=== PATIENT | female | born 2000 | race Caucasian/White ===

== ENCOUNTER → 2019-04-05 | Outpatient (CLI) | payer OTHER, SELFPAY ==
[2019-04-05 19:09] LABS: Chlamydia Trachomatis by PCR Negative (Negative); Neisserai gonorrhoeae by PCR Negative (Negative); Probe Check PASS; Sample Adequacy Control PASS; Specimen Processing Control PASS
== END | disposition home or self-care (01) ==
LOC: LABSPEC 16:15
PROVIDERS: Visit Provider Obstetrics & Gynecology
DX: Z11.3 Encounter for screening for infections with a predominantly sexual mode of transmission (principal)
CPT/HCPCS: 87491; 87591

== ENCOUNTER → 2020-05-28 | Outpatient (CLI) | payer OTHER, SELFPAY | END | disposition home or self-care (01) | LOC: LABSPEC 14:04 | PROVIDERS: Visit Provider Obstetrics & Gynecology | DX: Z12.4 Encounter for screening for malignant neoplasm of cervix (principal) | CPT/HCPCS: 88175; G0145 ==

== ENCOUNTER → 2021-06-03 | Outpatient (CLI) | payer OTHER, SELFPAY ==
[2021-06-02 10:58] VITALS: BMI 24.6
== END | disposition home or self-care (01) ==
LOC: LABSPEC 16:16
PROVIDERS: PCP Family Medicine; Visit Provider Obstetrics & Gynecology
DX: Z12.4 Encounter for screening for malignant neoplasm of cervix (principal)
CPT/HCPCS: 88175; G0145

== ENCOUNTER → 2021-10-19 08:01 | Outpatient (CLI) | payer OTHER, SELFPAY ==
[2021-10-19 08:45] LABS: Anion Gap 7 (5-15); BUN 12 mg/dL (7-18); Calcium,Total 8.9 mg/dL (8.5-10.1); Chloride 107 mmol/L (98-107); Cholesterol 187 mg/dL (200); Creatinine, Serum 0.67 mg/dL (0.55-1.02); EST Glomerular Filtration Rate 117 mL/min (>60); Est Glom Filt Rate - Afr Amer 141 mL/min (>60); Glucose 103 mg/dL (74-106); High Density Lipoprotein 63 mg/dL; Potassium 4.3 mmol/L (3.5-5.1); Sodium Level 137 mmol/L (136-145); Triglycerides 91 mg/dL; Very Low Density Lipoprotein 18 mg/dL (5-40)
== END ==
PROVIDERS: PCP Family Medicine; Referring Provider Family Medicine; Visit Provider Family Medicine
DX: Z00.00 Encounter for general adult medical examination without abnormal findings (principal)
CPT/HCPCS: 36415; 80048; 80061

== ENCOUNTER → 2022-08-06 | Outpatient (CLI) | payer OTHER, SELFPAY ==
[2022-08-06 13:53] LABS: Absolute Lymphocyte Count 2.45 X10^3/uL (0.83-4.51); Absolute Neutrophil Count 2.7 X10^3/uL (2.0-7.7); Basophil# 0.03 X10^3/uL; Basophil% 0.5 % (0-1); Eosinophil# 0.13 X10^3/uL; Eosinophils% 2.3 % (0-5); Hematocrit 41.6 % (37-47); Hemoglobin 14.3 g/dL (12.0-15.0); Lymphocyte # 2.45 X10^3/ul (0.83-4.51); Lymphocyte % 43.8 % (19-41); Mean Corp Hgb Conc 34.4 g/dL (32-36); Mean Corpuscular Hgb 28.8 pg (27.0-32.0); Mean Corpuscular Volume 83.9 fL (81-99); Mean Platelet Vol. 9.6 fl (6.2-12.0); Monocyte# 0.32 X10^3/uL; Monocyte% 5.7 % (0-10); NRBC Flagged by Analyzer 0 % (0-5); Neutrophil # 2.65 X10^3/uL (2.7-7.7); Neutrophil % 47.5 % (47-70); Platelet Count 346 K/mm3 (150-450); RBC Distribution Width CV 12.5 % (11.6-14.6); RBC Distribution Width SD 37.8 fl (35.1-43.9); Red Blood Count 4.96 M/mm3 (4.2-5.4); White Blood Count 5.6 K/mm3 (4.4-11.0)
[2022-08-06 14:05] LABS: Internal QC Validated? YES +Cl - CLEAR BKGD; Pregnancy, Serum, hCG Quali. NEGATIVE Negative
[2022-08-06 14:17] LABS: Hemoglobin A1c 5.2 % (3.8-5.6)
[2022-08-06 14:18] LABS: Follicle Stimulating Hormone 5.2 mIU/mL; Luteinizing Hormone 14.6 mIU/mL; Prolactin 7.9 ng/mL; T4 Free Direct 0.97 ng/dL (0.76-1.46); Thyroid Stim Hormone (TSH) 1.98 uIU/mL (0.358-3.74)
[2022-08-19 12:08] LABS: Testosterone, Free 1.45 ng/dL (0.10-0.85); Testosterone, Total 67 ng/dL (13-71)
[2022-08-19 17:50] LABS: Testosterone, % Free 2.17 % (0.50-2.80)
== END | disposition home or self-care (01) ==
LOC: WOBLAB 11:33
PROVIDERS: PCP Family Medicine; Visit Provider Obstetrics & Gynecology
DX: N93.9 Abnormal uterine and vaginal bleeding, unspecified (principal)
CPT/HCPCS: 36415; 82670; 83001; 83002; 83036; 84146; 84402; 84403; 84439; 84443; 84703; 85025

== ENCOUNTER → 2022-10-19 | Outpatient (CLI) | payer OTHER, SELFPAY ==
[2022-10-19 08:27] LABS: Anion Gap 6 (5-15); BUN 16 mg/dL (7-18); BUN/Creat Ratio 23.3 RATIO (10-20); Calcium,Total 8.6 mg/dL (8.5-10.1); Chloride 112 mmol/L (98-107); Cholesterol 161 mg/dL (200); Creatinine, Serum 0.69 mg/dL (0.55-1.02); EST Glomerular Filtration Rate 112 mL/min (>60); Est Glom Filt Rate - Afr Amer 135 mL/min (>60); Glucose 96 mg/dL (74-106); High Density Lipoprotein 47 mg/dL; Potassium 3.8 mmol/L (3.5-5.1); Sodium Level 142 mmol/L (136-145); Triglycerides 55 mg/dL; Very Low Density Lipoprotein 11 mg/dL (5-40)
== END | disposition home or self-care (01) ==
PROVIDERS: PCP Family Medicine; Referring Provider Family Medicine; Visit Provider Family Medicine
DX: Z00.00 Encounter for general adult medical examination without abnormal findings (principal)
CPT/HCPCS: 36415; 80048; 80061

== ENCOUNTER → 2023-11-08 | Outpatient (CLI) | payer OTHER, SELFPAY ==
--- OUTSIDE RECORDS SUMMARY | 2023-11-08 07:49 | XMS RPT_ITS | CCD ---
Author Name Unknown Address [facility] [employer] [id number] [place] [address] Organization [facility] Care Team Providers Care Preschool Adviser Name Role Phone DO Tigre Wade Attending Provider [phone] Daniel Roy (Historical) Primary Care Provide AVRIL You Attending Unavailable Allergies Allergy Classification Reported Allergen(s) Allergy Type Date of Onset Reaction(s) Facility (3 sources) Amoxicillin / Clavulanate; Translations: [AMOXICILLIN-POT CLAVULANATE] Drug Allergy 5 Other: See Comments [facility] Work Phone: (1 source) Cephalexin; Translations: [CEPHALEXIN] Drug Allergy 5 [facility] Repository Medications Current Medications Medication Drug Class(es) Dates Sig (Normalized) Sig (Original) COMPOUNDED PRESCRIPTION (1 source) Start: 09-20-2006 End: 08-16-2023 COMPOUNDED PRESCRIPTION daily vitamin 0 09/20/2006 08/16/2023 Discontinued Completed/Discontinued Medications Medication Drug Class(es) Dates Sig (Normalized) Sig (Original) 1 ml medroxyPROGESTERone acetate 150 mg/ml prefilled syringe (6 sources) Progestin Start: 3 End: 4 medroxyPROGESTERone (DEPO-PROVERA) 150 mg/mL Indications: Encounter for Depo-Provera contraception Inject 1 mL intramuscularly every 12 weeks. 1 mL 3 08/16/2023 08/17/2023 Discontinued Problems Problem Classification Problem Date Documented Da te Episodic/Chronic Contraceptive and procreative management (2 sources) Patient encounter status; Translations: [Encounter for surveillance of injectable contraceptive] 08-16-2023 Episodic Headache; including migraine (1 source) Migraine, unspecified, not intractable, without status migrainosus; Translations: [Migraine, unspecified, not intractable, without status migrainosus] Onset: 06-11-2023 Chronic Nausea and vomiting (1 source) Nausea; Translations: [Nausea] Onset: 06-11-2023 Episodic Other endocrine disorders (2 sources) Polycystic ovary syndrome; Translations: [Polycystic ovarian syndrome] 08-16-2023 Chronic Other nutritional; endocrine; and metabolic disorders (1 source) Obesity; Translations: [Obesity, unspecified] 08-16-2023 Chronic Other upper respiratory disease (2 sources) Allergic rhinitis; Translations: [Allergic rhinitis, unspecified] Onset: 09-16-2005 09-16-2005 Chronic Residual codes; unclassified (1 source) Pain, unspecified; Translations: [Pain, unspecified] Onset: 06-11-2023 Episodic Results Test Name Value Interpretation Reference Range Facil it Vital Signs Date Time Vital Sign Value Performing Clinician Facility 08-16-2023 07:28-0400 Body height 159.4 cm Avril Maria APRN.JEWELRY TECHNICIAN Work Phone: [facility] 08-16-2023 07:28-0400 Body weight 88 kg Avril Maria APRN.[facility] Work Phone: [facility] 08-16-2023 07:28-0400 Diastolic blood pressure 84 mm[Hg] Avril Maria APRN.JEWELRY TECHNICIAN Work Phone: [facility] 08-16-2023 07:28-0400 Systolic blood pressure 112 mm[Hg] Avril Maria APRN.JEWELRY TECHNICIAN Work Phone: [facility] 06-11-2023 09:53-0400 Body height 157.48 cm DO Tigre Wade Work Phone: [facility] Work Phone: 06-11-2023 09:53-0400 Body mass index (BMI) [Ratio] 35 kg/m2 DO Tigre Wade Work Phone: [facility] Work Phone: 06-11-2023 09:53-0400 Body temperature 98.3 [degF] DO Tigre Wade Work Phone: [facility] Work Phone: 06-11-2023 09:53-0400 Body weight 86.9 kg DO Tigre Wade Work Phone: [facility] Work Phone: 06-11-2023 09:53-0400 Diastolic blood pressure 84 mm[Hg] DO Tigre Wade Work Phone: [facility] Work Phone: 06-11-2023 09:53-0400 Heart rate 93 /min DO Tigre Wade Work Phone: [facility] Work Phone: 06-11-2023 09:53-0400 Respiratory rate 16 /min DO Tigre Wade Work Phone: [facility] Work Phone: 06-11-2023 09:53-0400 SaO2% (BldA) [Mass fraction] 100 % DO Tigre Wade Work Phone: [facility] Work Phone: 06-11-2023 09:53-0400 Systolic blood pressure 129 mm[Hg] DO Tigre Wade Work Phone: [facility] Work Phone: Encounters Encounter Date Encounter Type Care Provider Facility Start: 08-16-2023 Telephone encounter Avril byrd APRN.JEWELRY TECHNICIAN Work Phone: OB/Gynecology Plan of Treatment Date Care Activity Detail Author Start: 06-03-2024 Pap Testing Pap Testing [facility] Start: 07-01-2023 Covid-19 Vaccine ( season) Covid-19 Vaccine () [facility] Start: 07-01-2023 Influenza vaccination Influenza Vacc ine (#1) [facility] Start: 10-31-2022 Depression Assessment Depression Ass essment [facility] Start: 03-21-2017 HPV Vaccine (2 - 3-d ose series) HPV Vaccine (2 - 3-dose series) [facility] Start: 2016 Hepatitis C Screening Hepatitis C Jose Daniel almarazvenkat [facility] Start: 2016 HIV Screening HIV Screening [facility] Start: 2014 Meningococcal B Vacc ine: Consider Based On Risk (1 of 2 - Patient Seeks Protection) Meningococcal B Vaccine: Consider Based On Risk (1 of 2 - Patient Seeks Protection) [facility] Start: 2012 Peds To Adult Transi tion Annual Assessment Peds To Adult Transition Annual Assessment [facility] Start: 2010 Peds To Adult Transi tion Initial Discussion Peds To Adult Transition Initial Discussion [facility] Start: 2009 Urine microalbumin profile DTa P,Tdap,Td Vacc[facility] Immunization Date Immunization Notes Care Provider Kelly sierra 08-02-2022 influenza virus vacc ine, unspecified formulation Avril Maria APRN.[facility] Work Phone: [facility] 02-21-2017 Human Papillomavirus 9-valent vaccine Avril Maria APRN.JEWELRY TECHNICIAN Work Phone: [facility] Work Phone: 06-24-2004 diphtheria, tetanus toxoids and acellular pertussis vaccine Avril Maria APRN.JEWELRY TECHNICIAN Work Phone: [facility] Work Phone: 06-24-2004 measles, mumps and rubella virus vaccine Avril Maria APRN.JEWELRY TECHNICIAN Work Phone: [facility] 06-24-2004 poliovirus vaccine, inactivated Avril Maria APRN.JEWELRY TECHNICIAN Work Phone: [facility] 05-23-2000 diphtheria, tetanus toxoids and acellular pertussis vaccine Avril Maria APRN.JEWELRY TECHNICIAN Work Phone: [facility] Work Phone: 05-23-2000 haemophilus influenz ae type b vaccine, HbOC conjugate Avril Maria APRN.JEWELRY TECHNICIAN Work Phone: [facility] 05-23-2000 poliovirus vaccine, inactivated Avril Maria APRN.JEWELRY TECHNICIAN Work Phone: [facility] 10-12-1999 measles, mumps and rubella virus vaccine Avril Maria EMPLOYEE WELFARE MANAGER.JEWELRY TECHNICIAN Work Phone: [facility] 10-12-1999 varicella virus vaccine Avril Maria EMPLOYEE WELFARE MANAGER.JEWELRY TECHNICIAN Work Phone: [facility] 06-03-1999 diphtheria, tetanus toxoids and acellular pertussis vaccine Avril Maria EMPLOYEE WELFARE MANAGER.JEWELRY TECHNICIAN Work Phone: [facility] Work Phone: 06-03-1999 haemophilus influenz ae type b vaccine, HbOC conjugate Avril Maria EMPLOYEE WELFARE MANAGER.JEWELRY TECHNICIAN Work Phone: [facility] 06-03-1999 hepatitis B vaccine, pediatric or pediatric/adolescent dosage Avril Maria EMPLOYEE WELFARE MANAGER.JEWELRY TECHNICIAN Work Phone: [facility] 03-05-1999 diphtheria, tetanus toxoids and acellular pertussis vaccine Avril Maria EMPLOYEE WELFARE MANAGER.JEWELRY TECHNICIAN Work Phone: [facility] Work Phone: 03-05-1999 haemophilus influenz ae type b vaccine, HbOC conjugate Avril Maria EMPLOYEE WELFARE MANAGER.JEWELRY TECHNICIAN Work Phone: [facility] 03-05-1999 poliovirus vaccine, inactivated Avril Maria EMPLOYEE WELFARE MANAGER.JEWELRY TECHNICIAN Work Phone: [facility] 01-09-1999 diphtheria, tetanus toxoids and acellular pertussis vaccine Avril Maria EMPLOYEE WELFARE MANAGER.JEWELRY TECHNICIAN Work Phone: [facility] Work Phone: 01-09-1999 haemophilus influenz ae type b vaccine, HbOC conjugate Avril Maria EMPLOYEE WELFARE MANAGER.JEWELRY TECHNICIAN Work Phone: [facility] 01-09-1999 poliovirus vaccine, inactivated Avril Maria EMPLOYEE WELFARE MANAGER.JEWELRY TECHNICIAN Work Phone: [facility] 1998 hepatitis B vaccine, pediatric or pediatric/adolescent dosage Avril Maria EMPLOYEE WELFARE MANAGER.JEWELRY TECHNICIAN Work Phone: [facility] 1998 hepatitis B vaccine, pediatric or pediatric/adolescent dosage Avril Maria EMPLOYEE WELFARE MANAGER.JEWELRY TECHNICIAN Work Phone: [facility] Payers Date Payer Category Payer Self-pay 2019 Private Health Insurance [id number] 2019 Private Health Insurance AETRINA Nogueira ETNA POS [id number] 2019-Present [phone] [address] [place] [address] POS [id number] Unknown [id number] Social History Date Type Detail Facility Tobacco smoking status NHIS Unknown if ever smoked [facility] Work Phone: Start: 1998 Sex Assigned At Female C [facility] Start: 02-21-2017 Tobacco smoking status PAIS Never smoked tobacco [facility] Start: 02-21-2017 Tobacco use and exposure Smokeless tobacco non-user [facility] Start: 08-16-2023 Alcohol intake Current non-dr vending technician of alcohol (finding) [facility] Start: 08-16-2023 History of Social function [facility] Start: 08-16-2023 Tobacco use panel [facility] Start: 08-16-2023 Gender identity Identifies as female gender (finding) [facility] National Score (1-100), lower number is lower risk 72 [facility] Note 08-17-2023 Addendum Note - Amanda Escobar RN - 08/17/2023 3:31 PM EDTTelephone Encounter - Amanda Escobar RN - 08/17/2023 3:28 PM EDTAddendum Note - Avril Maria APRN.CNP - 08/17/2023 3:21 PM EDT Note Date & Type Note Facility 08-17-2023 Miscellaneous Notes Addended by: AMANDA ESCOBAR RN on: 08/17/2023 03:31 PM Modules accepted: Orders Patient notified. Information sent via [employer]. Amanda Escobar RN Addended by: AVRIL MARIA on: 08/17/2023 03:21 PM Modules accepted: Orders Please notify pt - Apri sent to her pharmacy which she can start the first pack on TuesdaySEPTEMBER 18 or the . It takes about 3 months for her body to adjust to a new oral contraceptive. Please send her OCP information although she has taken OCP in the past. Avril Maria APRN.CHEMA Patient called in regarding previous OCP she has been on. Larissia, Radha and Cryselle are the ones she took in the past. Amanda Escobar RN documented in this encounter [facility] Instructions 08-17-2023 Patient Instructions Note Date & Type Note Facility 08-17-2023 Instructions Amanda Escobar RN - 08/17/2023 3:27 PM EDT Oral Contraceptives: The Pill Beginning the Pill Pills come in either a 21 day pack or a 28 day pack. With the 21 day pack you will take one pill for 21 days then no pill for 7 days, during which time you will have what is known as withdrawal bleeding. The 28 day pack allows you to take a pill every day of the cycle with no interruptions. The first 21 pills are the pills with the active ingredients and the last 7 are the nonmedical pills (placebo) or they may contain iron. There will be bleeding during the week you are taking the nonmedical pills. The advantage to the 28 day pack is that you don t have to keep track of when you stopped the pill. There are a group of 28 day pills that contain 24 active pills and only 4 placebo pills. These are formulated to give you a machine fastener period. Unless otherwise instructed, you should start your pills the Tuesday following your first day of bleeding with your next period (if your period starts on a Tuesday, you should start pills the same day) Read your information packet that comes with the pills. Pill Benefits The pill is the most popular method of reversible control being used today. Millions of women rely on oral contraceptives as their control method. It is important to have an examination by your physician to determine if the pill is safe for you. There are several advantages associated with the pill: it is 97-98% effective when used correctly; may improve acne; periods are more regular and less painful; there is less iron deficiency anemia in pill users. group home use is associated with a decreased incidence of ovarian and uterine cancer. There is also no evidence that the pill increases the incidence of any cancer. How Oral Contraceptives Work Oral contraceptives come in two varieties. One is the combination pill which contains both estrogen and progesterone. Combination pills are considered 98-99% effective in preventing . This pill comes in either monophasic, which delivers the same amount of estrogen and progesterone throughout the cycle; and triphasic, which try tries to mimic the normal hormone cycle by changing the levels of the hormones in the pills during the month. There is no real advantage to taking the one over the other. The other type of pill only contains progesterone. It is best used for women who can t take estrogen. This type of pill is slightly less effective than the combination pill in preventing . It is VERY important to take the progesterone only pill at the same time every day. Oral contraceptives prevent ovulation (release of an egg from the ovary) by suppressing the pituitary gland s action. The pill does NOT prevent sexually transmitted disease. Obtaining a Prescription It is important to see your doctor before starting oral contraceptives so that you can have a full medical history taken and a physical examination given. Certain medical conditions may make the pill inappropriate for you, therefore it is very important to be honest and as complete as possible with the information you share with your doctor. The types of predisposing factors which would make the pill a poor choice of control would include: History of blood clots Stroke Serious liver disease or impaired liver function Unexplained vaginal bleeding or Cancer of the reproductive system Active gall bladder disease Hypertension Possible Side Effects It can take up to three months for your body to become adjusted to the pill. The more common side effects experienced at this time are: breakthrough spotting or bleeding, which is bleeding at any other time other than when you should be having a period; nausea or vomiting; breast tenderness; and mild fluid retention. There is no terminal make up operator weight gain with the use of the pill. Breakthrough bleeding is the most common complaint of new pill users. There is no way to predict who will have it and there is no way of preventing it. Breakthrough bleeding usually subsides on its own with no further treatment after the first three months of taking the pill. If these symptoms continue to occur after the first three months you should check with your physician to see if there is any physical cause and possibly change to another control pill. Problems: Missed 1 pill: Take 2 pills the next day. Missed 2 pills: Take 2 pills the next day and 2 pills the following day. Also use another form of control (condoms) along with the pill for the rest of the month. Missed 3 or more pills: You have two choices. You can take two pills each day until you are on schedule, plus use an additional form of control along with the pill for the rest of the month. Or you can stop the pill and start a completely new pack of pills the next Tuesday. You must use another form of control with the pill for at least the first two weeks of the new pack. You re ill and you have been vomiting or have diarrhea: You must use another form of control with the pill since the pill may not be fully absorbed during your illness. Continue to use the added control until the end of the cycle. Desire to become : Stop using the pill for one month before trying to become . Taking other medications: The control pill is less effective when you take the antibiotic Rifampin, epilepsy (seizure) drugs such as phenytoin, carbamazepine, phenobarbital, topiramate and some medications for HIV. Let your doctor know if you start taking any of these medications while on the pill. Symptoms to Notify Your Doctor with Immediately: Pain in your chest or legs Continuous blurred vision Severe headaches Slurred speech Tingling or weakness on one side of your body Shortness of breath Swelling of one leg Refills of Control Pills You need to see a doctor every year for a refill of your prescription. This is necessary in order that your health can be monitored closely while you are taking control pills. If your prescription should before your next scheduled appointment you can usually get a one month extension from your doctors office if you call during regular business hours about one week before you need to start the new package of pills. This allows the physician to refer to your chart for necessary health information. documented in this encounter [facility] Progress note 08-16-2023 Note Date & Type Note Facility 08-16-2023 Note HNO ID: [id number] Author: Avril Maria APRN.JEWELRY TECHNICIAN Service: ? Author Type: Nurse Practitioner Type: Progress Notes Filed: 08/17/2023 3:11 PM Note Text: Refinery Operator Helper offered: Patient declines. Kimberly Buck is a 22 year old female who presents for problem visit Depo Provera prescription and to establish care. Previous gynecologic care at [place] which closed. HPI: Using Depo Provera for contraception. Last dose 07/08/2023. No menses with Depo Provera but does have spotting with intercourse. Has used it for past year since moodiness and migraines were worse with ANSELMO, IUD was unable to be inserted. Still having migraines with Depo but worse with ANSELMO. Pap 06/03/2021 normal. Last annual 04/27/2023. Diagnosed with PCOS 2021 - irregular menses, thinning hair, elevated testosterone. US normal. OB History T0 L0 SAB0 IAB0 Ectopic0 Multiple0 Live Births0 Feeder Catcher History LMP: 04/04/2017, Having periods Age at Menarche: Age at First : Age at Menopause: Feeder Catcher History Comments: Sexual Activity: Yes; Male Contraception: Condom PAST MEDICAL HISTORY Diagnosis Date Unspecified otitis media Recurrent otitis PAST SURGICAL HISTORY Procedure Laterality Date INCISION EARDRUM,ASPIR,GEN ANESTH Myringotomy/tubes, x 2 No family history on file. Social History Tobacco Use Smoking status: Never Smokeless tobacco: Never Tobacco comments: father smokes outside Substance Use Topics Alcohol use: No Drug use: No Current Outpatient Medications Medication Sig Etonogestrel-Ethinyl Estradiol (NUVARING) 0.12-0.015 mg/24 hr vaginal ring Use 1 Each vaginally as directed. INSERT ONE(1) RING VAGINALLY AND LEAVE IN PLACE FOR THREE WEEKS, THEN REMOVE FOR 1 WEEK. miSOPROStol (CYTOTEC) 200 mcg tablet Take 1 tablet by mouth every 6 hours as needed. COMPOUNDED PRESCRIPTION daily vitamin No current facility-administered medications for this visit. Allergies As of Date: 08/16/2023 Allergen Noted Reaction AUGMENTIN [AMOXICILLIN-POT CLAVUL*09/08/2005 Unknown KEFLEX [CEPHALEXIN] 09/08/2005 Unknown Fully Assessed 04/15/2017 REVIEW OF SYSTEMS Denies family history of clotting disorders. Denies personal history of DVT, CVD, hypertension or migraine with aura. Non smoker. Allergies and current medication updated:Yes EXAM: BP 112/84 Ht 5' 2.75 (1.59m) Wt 194 lb (88.0kg) LMP 12/08/2022 BMI 34.63 kg/(m2). GENERAL: pleasant, female in no apparent distress CHEST: Normal inspiratory effort NEURO: alert and oriented x3,exam grossly non-focal ASSESSMENT/PLAN: 1. Encounter to establish care - ICD9: V65.8, ICD10: Z76.89 (primary diagnosis) - Last annual 03/2023. Normal Pap 05/2021. 2. Encounter for Depo-Provera contraception - ICD9: V25.49, ICD10: Z30.42 - Has gained 15 lbs since starting one year ago. Discussed weight gain and length of time of return of menstrual cycle after discontinuation. Has tried ANSELMO in the past with side effects. Unsure of the kinds tried and prefers to use ANSELMO - will check what ANSELMO's she has tried. - MEDROXYPROGESTERONE 150 MG/ML INTRAMUSCULAR SYRINGE 3. PCOS (polycystic ovarian syndrome) - ICD9: 256.4, ICD10: E28.2 - discussed with pt- review of PCOS with signs and symptoms. Increased risk of DMT2, CAD, infertility. Follow-up as needed and at annual. 08/17/2023 Patient sent in [email or web address] message that she has previously taken OCP's Radha Barbour (Sprintec) and Grover (Low Ogestrel) Avril Maria APRN.CHEMA Medical Decision Making: Problems: Moderate: 2+ stable chronic illnesses Risk: Moderate: Drug management and Moderate risk from testing/treatment Medical Decision Making Level: 4 - Moderate [facility] History of Present illness Narrative 08-16-2023 Avril Maria APRN.JEWELRY TECHNICIAN - 08/16/2023 7:18 AM EDT Note Date & Type Note Facility 08-16-2023 History of Presen t illness Narrative Refinery Operator Helper offered: Patient declines. Kimberly Buck is a 22 year old female who presents for problem visit Depo Provera prescription and to establish care. Previous gynecologic care at [place] which closed. HPI: Using Depo Provera for contraception. Last dose 07/08/2023. No menses with Depo Provera but does have spotting with intercourse. Has used it for past year since moodiness and migraines were worse with ANSELMO, IUD was unable to be inserted. Still having migraines with Depo but worse with ANSELMO. Pap 06/03/2021 normal. Last annual 04/27/2023. Diagnosed with PCOS 2021 - irregular menses, thinning hair, elevated testosterone. US normal. OB History T0 L0 SAB0 IAB0 Ectopic0 Multiple0 Live Births0 Feeder Catcher History LMP: 04/04/2017, Having periods Age at Menarche: Age at First : Age at Menopause: Feeder Catcher History Comments: Sexual Activity: Yes; Male Contraception: Condom PAST MEDICAL HISTORY Diagnosis Date Unspecified otitis media Recurrent otitis PAST SURGICAL HISTORY Procedure Laterality Date INCISION EARDRUM,ASPIR,GEN ANESTH Myringotomy/tubes, x 2 No family history on file. Social History Tobacco Use Smoking status: Never Smokeless tobacco: Never Tobacco comments: father smokes outside Substance Use Topics Alcohol use: No Drug use: No Current Outpatient Medications Medication Sig Etonogestrel-Ethinyl Estradiol (NUVARING) 0.12-0.015 mg/24 hr vaginal ring Use 1 Each vaginally as directed. INSERT ONE(1) RING VAGINALLY AND LEAVE IN PLACE FOR THREE WEEKS, THEN REMOVE FOR 1 WEEK. miSOPROStol (CYTOTEC) 200 mcg tablet Take 1 tablet by mouth every 6 hours as needed. COMPOUNDED PRESCRIPTION daily vitamin No current facility-administered medications for this visit. Allergies As of Date: 08/16/2023 Allergen Noted Reaction AUGMENTIN [AMOXICILLIN-POT CLAVUL*09/08/2005 Unknown KEFLEX [CEPHALEXIN] 09/08/2005 Unknown Fully Assessed 04/15/2017 REVIEW OF SYSTEMS Denies family history of clotting disorders. Denies personal history of DVT, CVD, hypertension or migraine with aura. Non smoker. Allergies and current medication updated:Yes EXAM: BP 112/84 Ht 5' 2.75 (1.59m) Wt 194 lb (88.0kg) LMP 12/08/2022 BMI 34.63 kg/(m^2). GENERAL: pleasant, female in no apparent distress CHEST: Normal inspiratory effort NEURO: alert and oriented x3,exam grossly non-focal ASSESSMENT/PLAN: 1. Encounter to establish care - ICD9: V65.8, ICD10: Z76.89 (primary diagnosis) - Last annual 03/2023. Normal Pap 05/2021. 2. Encounter for Depo-Provera contraception - ICD9: V25.49, ICD10: Z30.42 - Has gained 15 lbs since starting one year ago. Discussed weight gain and length of time of return of menstrual cycle after discontinuation. Has tried ANSELMO in the past with side effects. Unsure of the kinds tried and prefers to use ANSELMO - will check what ANSELMO's she has tried. - MEDROXYPROGESTERONE 150 MG/ML INTRAMUSCULAR SYRINGE 3. PCOS (polycystic ovarian syndrome) - ICD9: 256.4, ICD10: E28.2 - discussed with pt- review of PCOS with signs and symptoms. Increased risk of DMT2, CAD, infertility. Follow-up as needed and at annual. Avril Maria APRN.CHEMA Medical Decision Making: Problems: Moderate: 2+ stable chronic illnesses Risk: Moderate: Drug management and Moderate risk from testing/treatment Medical Decision Making Level: 4 - Moderate documented in this encounter [facility] Progress note 07-08-2023 Note Date & Type Note Facility 07-08-2023 Note HNO ID: [id number] Author: Gretchen Amin RN Service: ? Author Type: ? Type: Progress Notes Filed: 07/08/2023 12:31 PM Note Text: Received outside medical records from [place] [employer]. Sent for scanning. Gretchen Amin RN [facility] Evaluation note Note Date & Type Note Facility Evaluation note No assessment information availa [facility] Ambulatory Work Phone: Evaluation note Note Date & Type Note Facility documented in this encounter [facility] Evaluation note Note Date & Type Note Facility documented in this encounter [facility] Chief Complaint and Reason for Visit Chief Complaint headache Advance Directives No Advanced Directives Records Found Advance Directive Response Recorded Date/ Time Advance Directives No June 11, 2023 9:27am Summary Purpose Family History No Family History Records FoundNo Family History Records Found Additional Source Comments Goals (unrecognized section and content) Goals may be documented in a n alternate section INFORMATION SOURCE (unrecogn ized section and content) DATE CREATED AUTHOR AUTHOR'S ORGANIZ ATION 08/18/2023 [facility] Source Comments (unrecognize d section and content) In the event this informatio n is protected by the Federal Confidentiality of Alcohol and Drug Abuse Patient Records regulations: The Federal rules restrict any use of the information to criminally investigate or prosecute any alcohol or drug abuse patient.[facility] the event this information is protected by the Federal Confidentiality of Alcohol and Drug Abuse Patient Records regulations: The Federal rules restrict any use of the information to criminally investigate or prosecute any alcohol or drug abuse patient.[facility] Reason for Visit (unrecogniz ed section and content) Reason Comments Patient Update Care Teams (unrecognized sec tion and content) Preschool Adviser Relationship Specialty Start Date End Date Daniel Roy (Historical) PCP - General 02/09/17 FOR RECORDS PERTAINING TO PATIENTS WHO ARE OR HAVE BEEN ENROLLED IN A CHEMICAL DEPENDENCY/SUBSTANCEABUSE PROGRAM, SOME INFORMATION MAY BE OMITTED. This clinical summary was aggregated from multiple sources. Caution should be exercised in using it in the provision of clinical care. This summary normalizes information from multiple sources, and as a consequence, information in this document may materially change the coding, format and clinical context of patient data. In addition, data may be omitted in some cases. CLINICAL DECISIONS SHOULD BE BASED ON THE PRIMARY CLINICAL RECORDS. [facility]. provides no warranty or guarantee of the accuracy or completeness of information in this document.
[2023-11-08 10:48] LABS: Anion Gap 7 (5-15); BUN 11 mg/dL (7-18); BUN/Creat Ratio 17.7 RATIO (10-20); Calcium,Total 8.3 mg/dL (8.5-10.1); Chloride 112 mmol/L (98-107); Cholesterol 175 mg/dL (200); Creatinine, Serum 0.62 mg/dL (0.55-1.02); EST Glomerular Filtration Rate 125 mL/min (>60); Est Glom Filt Rate - Afr Amer 151 mL/min (>60); Glucose 96 mg/dL (74-106); High Density Lipoprotein 53 mg/dL; Potassium 3.8 mmol/L (3.5-5.1); Sodium Level 140 mmol/L (136-145); Triglycerides 100 mg/dL; Very Low Density Lipoprotein 20 mg/dL (5-40)
[2023-11-17 11:08] LABS: Testosterone, % Free 0.83 % (0.50-2.80); Testosterone, Free 0.04 ng/dL (0.10-0.85); Testosterone, Total 5 ng/dL (13-71)
== END | disposition home or self-care (01) ==
PROVIDERS: PCP Family Medicine; Referring Provider Family Medicine; Visit Provider Family Medicine
DX: Z00.00 Encounter for general adult medical examination without abnormal findings (principal); E28.2 Polycystic ovarian syndrome
CPT/HCPCS: 36415; 80048; 80061; 84402; 84403